=== PATIENT | male | born 1955 | race Caucasian/White ===

== ENCOUNTER 2018-07-26 17:47 | Emergency (ER) | payer BC, SELFPAY ==
--- NOTE | 2018-07-26 19:53 | RAD REPORT ---
EXAM DESCRIPTION: CT - Head Brain Wo Cont - 07/26/2018 7:45 pm CLINICAL HISTORY: MENTAL STATUS CHANGE Drowsiness, headache COMPARISON: No comparisons TECHNIQUE: All CT scans are performed using dose optimization technique as appropriate and may inclu de automated exposure control or mA/KV adjustment according to patient size. FINDINGS: No intracranial hemorrhage, hydrocephalus or extra-axial fluid collection.No areas of brai n edema or evidence of midline shift. Opacification of the left maxillary antrum is seen compatible with chronic sinusitis. The paranasal s inuses and mastoids are otherwise clear. The calvarium is intact. IMPRESSION: No acute intracranial abnormality.
--- NOTE | 2018-07-26 20:10 | RAD REPORT ---
EXAM DESCRIPTION: RAD - Chest Single View - 07/26/2018 8:04 pm CLINICAL HISTORY: AMS Chest pain. COMPARISON: CHEST SINGLE VIEW dated 11/23/2008; CHEST SINGLE VIEW dated 08/24/2006 FINDINGS: Portable technique limits examination quality. The lungs are underinflated resulting in vascular crowding. The heart is normal in size. No displaced fractures. IMPRESSION: Underinflated lungs.
[2018-07-26 20:55] LABS: Absolute Lymphocytes (CBC) 0.5 K/uL (0.7-4.9); Absolute Monocytes 0.7 K/uL (0.1-1.3); Basophils % 0.6 % (0-1.3); Eosinophils % 0.7 % (0-4.4); Hematocrit 36.7 % (39.6-49.0); Lymphocytes % 8.3 % (15.3-44.8); Monocytes % 11.2 % (3.3-12.3); RBC Red Blood Cell Count 3.96 M/uL (4.33-5.43)
[2018-07-26 21:06] LABS: Protime INR 1.8
[2018-07-26 21:29] LABS: ALT/SGPT 171 U/L (12-78); Albumin 2.5 g/dL (3.4-5.0); Alkaline Phosphatase 386 U/L (45-117); BUN Blood Urea Nitrogen 16 mg/dL (7-18); Bicarbonate 24 mmol/L (21-32); Bilirubin Direct 15.8 mg/dL (0-0.2); Glucose Level 103 mg/dL (74-106); Lipase 296 U/L (73-393); Magnesium 1.6 mg/dL (1.8-2.4); NT PRO-BNP 321 pg/mL (<125); Potassium 3.5 mmol/L (3.5-5.1); Protein, Total 8.1 g/dL (6.4-8.2); Sodium Level 134 mmol/L (136-145); Troponin (Emerg Dept Use Only) < 0.02 ng/mL (0.0-0.045)
[2018-07-26 21:34] LABS: AST/SGOT 523 U/L (15-37); Bilirubin Total 20.3 mg/dL (0.2-1.0)
[2018-07-26] MEDS ORDERED: CEFTRIAXONE/SWI 1gm 1 GM/10 ML SYR ONE (22:11)
[2018-07-26] MEDS ORDERED: NA CHLORIDE 0.9% 1,000 ML ONE (22:11)
[2018-07-26 23:41] LABS: Barbiturates NEGATIVE (NEGATIVE); Benzodiazepines NEGATIVE (NEGATIVE); Cocaine NEGATIVE (NEGATIVE); METHAMPHETAM NEGATIVE (NEGATIVE); Methadone NEGATIVE (NEGATIVE); Opiates POSITIVE (NEGATIVE); Phencyclidine NEGATIVE (NEGATIVE); THC Cannibis NEGATIVE (NEGATIVE)
[2018-07-26] MEDS ORDERED: MAGNESIUM SULFATE 1 gm IVPB 1 GM/100 ML BAG IV ONE (23:55)
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
[2018-07-27 00:27] LABS: Urine Bacteria <20 /HPF (NONE SEEN); Urine Culture Reflex Order NOT NEEDED; Urine RBC NONE SEEN /HPF (NONE SEEN)
[2018-07-27 01:47] VITALS: BP 116/68; TEMP 98; O2SAT 97
--- NOTE | 2018-07-27 07:19 | EKG ---
Test Date: 2018-07-26 Test Time: 19:21:26 Special Procedures Nurse: AG3 MEASUREMENT RESULTS: Intervals: Rate: 92 [place]: 164 QRSD: 94 QT: 354 QTc: 437 Opdyke: P: 50 [place]: 164 QRS: -13 T: 51 INTERPRETIVE STATEMENTS: Normal sinus rhythm Septal infarct, age undetermined Abnormal ECG Compared to ECG 12/30/2011 21:49:51 Myocardial infarct finding now present Electronically Signed On 07-27-18 07:19:10 [employer]PENTER [employer] JOINER by Morris Escalona
--- NOTE | 2018-07-27 17:53 | RAD REPORT ---
EXAM DESCRIPTION: CT ABDOMEN WITH IV CONTRAST CLINICAL HISTORY: Abdominal pain. Jaundice. COMPARISON: None. TECHNIQUE: CT scan of the abdomen an pelvis with IV contrast. This exam was performed according to our [facility]-opt[facility] program, which includes automated exposure control, adjustment of the mA and/or kV according to patient size and/or less of iterative reconstruction technique. FINDINGS: There are multiple nodules at the lung bases suggesting metastatic disease. No pleural or pericardial effusions. The liver is markedly enlarged measuring 23 cm and heterogeneous with nodular contour, suggesting cir rhosis. There are scattered areas of increased and decreased enhancement which may represent intrahep atic lesions. Spleen is also enlarged measuring 15.2 cm. Multiple splenic and paraesophageal varices are seen. There is intrahepatic ductal dilatation. The gallbladder is moderately distended with surro unding pericholecystic fluid. The pancreas, adrenal glands, and kidneys are unremarkable. The pelvic organs are also unremarkable. No small bowel obstruction. The appendix is not well-visualized. There is mild wall thickening of the colon which may be reactive. Small amount of abdominopelvic ascites is seen. There are mild degenerative changes of the spine. The aorta is normal caliber. No body wall hernia is seen. IMPRESSION: 1. Cirrhosis with hepatosplenomegaly, ascites, and varices. 2. Heterogeneous enhancement pattern of the live which may represent underlying hepatic lesions Dedic ated MRI imaging is recommended. 3. Enlarged gallbladder with pericholecystic fluid. Consider ultrasound for complete evaluation. 4. Multiple nodules at the bases suggesting metastatic disease. Electronically signed by Jhony Ernandez MD 07/26/2018 10:37 PM [employer]ING [employer] Due to temporary technical issues with the PACS/Fluency reporting system, reports are being signed by the in house radiologist as a courtesy to ensure prompt reporting. The interpreting radiologist is f ully responsible for the content of the report.
== END 2018-07-27 01:19 | disposition short-term general hospital (02) ==
LOC: ER 17:47
DX: K72.90 Hepatic failure, unspecified without coma (principal); K81.9 Cholecystitis, unspecified; K74.60 Unspecified cirrhosis of liver; B19.20 Unspecified viral hepatitis C without hepatic coma
CPT/HCPCS: 36415; 70450; 71045; 74177; 80048; 80076; 80307; 80320; 80329; 81015; 82140; 83605; 83690; 83735; 83880; 84145; 84484; 85025; 85610; 85730; 87040; 93005; 96365; 96366; 99285; J0696; J3475; J7030; Q9967